=== PATIENT | female | born 1965 | race Caucasian/White ===

== ENCOUNTER 2017-01-20 17:59 | Emergency (ER) | payer MEDICAID ==
[2017-01-20] MEDS ORDERED: CYCLOBENZAPRINE 10 MG TAB PO ONE (18:13)
[2017-01-20] MEDS ORDERED: KETOROLAC 30 MG/1 ML SDV IM ONE (18:13)
--- NOTE | 2017-01-20 18:14 | EDPHY ---
H & P Time Seen by Provider: 01/20/17 18:03 HPI/ROS: This is a 51-year-old female presenting to the emergency department complaining of lower back pain. Patient states she has a history of chronic lower back pain due to scoliosis and sciatica. She reports that she has been taking classes has been sitting for prolonged periods times over the past 2 weeks, since then she has been having increased dull ache to lower back radiating to left buttocks and left lower extremity. Denies any traumatic injury, denies any bowel or bladder incontinence, ambulatory with a slow steady gait. Denies any other complaints REVIEW OF SYSTEMS: Constitutional: No fever no chills Eyes: No blurred vision ENT: No neck pain Respiratory: No cough Cardiac: No chest pain Genitourinary: Urinary discomfort no bowel or bladder incontinence Musculoskeletal: Lower back pain Skin: No rash Neurological: No headache or dizziness Past Medical/Surgical History: Past medical history: Scoliosis, sciatica Smoking Status: Never smoked Physical Exam: General Appearance: Alert and no distress. Normocephalic atraumatic Eyes: PERRLA Gastrointestinal: Abdomen is soft and nontender, no masses Musculoskeletal: Neck is supple and nontender. No L-S Spine vertebral tenderness. Left lateral posterior lumbar muscular tenderness on palpation Extremities: Positive straight leg raises left side positive. Moving all extremities without difficulty. CMS intact Skin: Warm and dry no no rash [ ] Constitutional: Initial Vital Signs Temperature (C) 36.9 C 01/20/17 18:10 Heart Rate 65 01/20/17 18:10 Respiratory Rate 14 01/20/17 18:10 Blood Pressure 112/65 01/20/17 18:10 O2 Sat (%) 98 01/20/17 18:10 O2 Delivery Mode Room Air Allergies/Adverse Reactions: No Known Allergies Allergy (Unverified 01/20/17 18:10) Home Medications: Medication Instructions Recorded Cyclobenzaprine [Flexeril 10 MG 10 mg PO TID PRN #30 tab 01/20/17 (*)] Medical Decision Making ED Course/Re-evaluation: Discussed plan of care: UA, 60mg Toradol IM, Flexeril 10 mg PO. 2000: Patient states her pain decreased 4/10, ambulatory without gait disturbance. Discharge home---> stable, discussed discharge instructions Differential Diagnosis: Differential diagnosis considered but not limited to UTI, sciatica and cauda equina - Data Points Medications Given: Discontinued Medications Cyclobenzaprine HCl (Flexeril) 10 mg PO EDNOW ONE Stop: 01/20/17 18:14 Last Admin: 01/20/17 18:51 Dose: 10 mg Cyclobenzaprine HCl (Flexeril 10 Mg Prepack#3) 1 btl TAKEHOME EDNOW ONE Stop: 01/20/17 20:59 Last Admin: 01/20/17 20:58 Dose: 1 btl Ketorolac Tromethamine (Toradol) 60 mg IM EDNOW ONE Stop: 01/20/17 18:14 Last Admin: 01/20/17 18:51 Dose: 60 mg Oxycodone/Acetaminophen (Percocet 5/325) 2 tab PO EDNOW ONE Stop: 01/20/17 20:23 Last Admin: 01/20/17 20:38 Dose: 2 tab Oxycodone/Acetaminophen (Percocet 5/325mg Prepack#4) 1 btl TAKEHOME EDNOW ONE Stop: 01/20/17 20:45 Last Admin: 01/20/17 20:58 Dose: Not Given Departure - Departure Disposition: Home, Routine, Self-Care Clinical Impression: Chronic back pain Condition: Good Instructions: Lumbar Radiculopathy (ED), Lower Back Exercises (ED) Additional Instructions: 1. Decreased strenuous activity 2. you can take ibuprofen 600 mg every 6-8 hours, take prescribed medication as directed 3. You can also use lidocaine 4% patches [id number], capsaicin patches [id number] to area of pain 4. I have given you instructions on lower back stretches 5. Follow up with a primary care provider at [facility] in the next 1-2 weeks Referrals: UNKNOWN,DOCTOR [Other] - As per Instructions [facility],. [Clinic] - As per Instructions Prescriptions: Cyclobenzaprine [Flexeril 10 MG (*)] 10 mg PO TID PRN #30 tab PRN Reason: Spasms
[2017-01-20] MEDS ORDERED: OXYCODONE/APAP 5/325 TAB PO ONE (20:22)
[2017-01-20 20:40] VITALS: BP 107/52; PULSE 56; RESP 18; TEMP 97.2; O2SAT 97
[2017-01-20] MEDS ORDERED: OXYCODONE/APAP 5/325MG PREPACK#4 BTL TAKEHOME ONE (20:44)
[2017-01-20] MEDS ORDERED: CYCLOBENZAPRINE 10MG PREPACK#3 BTL TAKEHOME ONE ×2 (20:54→20:58)
== END 2017-01-20 20:59 | disposition home or self-care (01) ==
DX: M54.5 Low back pain (principal); G89.29 Other chronic pain
CPT/HCPCS: J1885